=== PATIENT | male | born 1960 | race Caucasian/White ===

== ENCOUNTER → 2021-06-07 | Outpatient (CLI) | payer OTHER ==
[~2021-06-07] MED LIST: CEPH500 PO; HYDACE5325 PO
== END | disposition home or self-care (01) ==
LOC: LAB SHORT 13:44
DX: R07.9 Chest pain, unspecified (principal)
CPT/HCPCS: 84484

== ENCOUNTER 2021-07-11 08:34 | Emergency (ER) | payer OTHER ==
[~2021-07-11] VITALS: Ht 182.9 cm; Wt 102.1 kg
[~2021-07-11 08:34] MED LIST changes: +Simvastatin20 MG PO
[2021-07-11 09:18] LABS: BASOPHILS ABSOLUTE AUTO 0.02 K/mm3 (0.00-0.23); BASOPHILS PERCENT AUTO 0 % (0-2); EOSINOPHILS ABSOLUTE AUTO 0.08 K/mm3 (0.00-0.68); EOSINOPHILS PERCENT AUTO 1 % (0-6); Hematocrit 45.6 % (37.0-53.0); Hemoglobin 15.5 g/dL (13.5-17.5); IMMATURE GRAN ABSOLUTE AUTO 0.02 K/mm3 (0.00-0.10); IMMATURE GRAN PERCENT AUTO 0 % (0-1); LYMPHOCYTES ABSOLUTE AUTO 1.61 K/mm3 (0.84-5.20); LYMPHOCYTES PERCENT AUTO 28 % (21-46); MONOCYTES ABSOLUTE AUTO 0.37 K/mm3 (0.16-1.47); MONOCYTES PERCENT AUTO 7 % (4-13); Mean Corpuscular Volume 88 fL (80-100); Mean Platelet Volume 9.1 fL (9.1-12.4); NEUTROPHILS ABSOLUTE AUTO 3.58 K/mm3 (1.96-9.15); NEUTROPHILS PERCENT AUTO 63 % (41-73); Platelet Count 256 K/mm3 (150-400); RDW Coefficient Variation 11.9 % (11.7-14.2); RDW Standard Deviation 38.5 fL (35.1-46.3); Red Blood Cell Count 5.16 M/mm3 (4.30-5.90); White Blood Cell Count 5.68 K/mm3 (4.00-11.30)
[2021-07-11 09:36] LABS: Alanine Aminotransfer (ALT/SGP 79 U/L (12-78); Albumin, Blood 3.6 g/dL (3.4-5.0); Albumin/Globulin Ratio 0.9 (0.8-1.8); Alk Phos 72 U/L (50-136); Anion Gap 6 mmol/L (6-16); Aspartate Aminotrans (AST/SGOT 44 U/L (12-37); Bilirubin, Total 0.6 mg/dL (0.1-1.0); Blood Urea Nitrogen 14 mg/dL (8-24); Bun/Creatinine Ratio 15.5 (12.0-20.0); CO2, Blood 27 mmol/L (21-32); Calcium, Blood 8.8 mg/dL (8.5-10.1); Chloride, Blood 107 mmol/L (98-108); Globulin, Blood 3.9 g/dL (2.2-4.0); Glomerular Filtration Rate >60 (60-); Glucose, Blood 132 mg/dL (70-99); Potassium, Blood 4.1 mmol/L (3.5-5.5); Sodium, Blood 140 mmol/L (136-145); Total Protein, Blood 7.5 g/dL (6.4-8.2)
== END 2021-07-11 12:34 | disposition home or self-care (01) ==
LOC: ER 08:34
PROVIDERS: Emergency Medicine
DX: R07.9 Chest pain, unspecified (principal); Z88.0 Allergy status to penicillin
CPT/HCPCS: 36415; 71045; 80053; 83690; 84484; 85025; 93005; 93010; 99285-25

== ENCOUNTER 2022-03-02 08:41 | Day surgery (SDC) | payer OTHER ==
[~2022-03-02] VITALS: Ht 182.9 cm; Wt 103.0 kg
[~2022-03-02 08:41] MED LIST changes: +Aspir 8181 MG PO; +NITR.4SL SL; +OMEP20ER PO; +Prinivil10 MG PO
--- NOTE | 2022-03-02 12:54 | NUR ---
DISCHARGE REVIEWED WITH PT AND S.O., BOTH VERBALIZE UNDERSTANDING OF INSTRUCTIONS. TR BAND REMOVED AND AREA CLEANSED, CLOTH DOT PLACED. ARM BOARD PLACED TO R ARM. SALINE LOCK REMOVED WITH CATHETER INTACT. PT DISCHARGED WITH FAMILY.
== END 2022-03-02 12:55 | disposition home or self-care (01) ==
LOC: MHTC 08:41
DX: I25.10 Atherosclerotic heart disease of native coronary artery without angina pectoris (principal); E78.5 Hyperlipidemia, unspecified; I10 Essential (primary) hypertension; K21.9 Gastro-esophageal reflux disease without esophagitis; Z88.0 Allergy status to penicillin
CPT/HCPCS: 76937; 93454; 99152; 99153; C1769; C1887; C1894; J1644; J2250; J3010; J7030; J7040; Q9967

== ENCOUNTER → 2022-03-30 | Outpatient (CLI) | payer OTHER ==
[2022-03-30 18:14] LABS: Adenovirus F 40/41 Not Detected (NOT DETECT); Campylobacter Sp Not Detected (NOT DETECT); Cryptosporidium Not Detected (NOT DETECT); Cyclospora Cayetanensis Not Detected (NOT DETECT); E. Coli O157 Not Detected (NOT DETECT); Entamoeba Histolytica Not Detected (NOT DETECT); Enteroaggregative E. coli-EAEC Not Detected (NOT DETECT); Enteropathogenic E. coli-EPEC Not Detected (NOT DETECT); Enterotoxigenic E. coli-ETEC Not Detected (NOT DETECT); Giardia Lamblia Not Detected (NOT DETECT); Plesiomonas Shigelloides Not Detected (NOT DETECT); Salmonella Sp Not Detected (NOT DETECT); Shiga Toxin-prod E. coli-STEC Not Detected (NOT DETECT); Shigella/Enteroin E. coli-EIEC Not Detected (NOT DETECT); Vibrio Cholerae Not Detected (NOT DETECT); Vibrio Sp Not Detected (NOT DETECT); Yersinia Enterocolitica Not Detected (NOT DETECT)
[2022-03-30 18:15] LABS: Astrovirus Not Detected (NOT DETECT); Norovirus GI/GII Not Detected (NOT DETECT); Rotavirus A Not Detected (NOT DETECT); Sapovirus Not Detected (NOT DETECT)
== END | disposition home or self-care (01) ==
LOC: LAB 14:19 → LAB SHORT 14:19
PROVIDERS: Physician Assistant
DX: K92.1 Melena (principal); R19.4 Change in bowel habit
CPT/HCPCS: 87507

== ENCOUNTER 2022-08-06 10:28 | Day surgery (SDC) | payer OTHER | END 2022-08-06 23:12 | disposition home or self-care (01) | LOC: RAD 10:28 | DX: D70.1 Agranulocytosis secondary to cancer chemotherapy (principal); C20 Malignant neoplasm of rectum; T45.1X5A Adverse effect of antineoplastic and immunosuppressive drugs, initial encounter | CPT/HCPCS: 36598 ==

== ENCOUNTER 2024-05-13 13:36 | Emergency (ER) | payer OTHER ==
[~2024-05-13] VITALS: Ht 182.9 cm; Wt 97.5 kg
[2024-05-13 14:14] LABS: BASOPHILS ABSOLUTE AUTO 0.03 K/mm3 (0.00-0.23); BASOPHILS PERCENT AUTO 1 % (0-2); EOSINOPHILS ABSOLUTE AUTO 0.03 K/mm3 (0.00-0.68); EOSINOPHILS PERCENT AUTO 1 % (0-6); Hematocrit 43.3 % (37.0-53.0); Hemoglobin 14.6 g/dL (13.5-17.5); IMMATURE GRAN ABSOLUTE AUTO 0.01 K/mm3 (0.00-0.10); IMMATURE GRAN PERCENT AUTO 0 % (0-1); LYMPHOCYTES ABSOLUTE AUTO 1.05 K/mm3 (0.84-5.20); LYMPHOCYTES PERCENT AUTO 23 % (21-46); MONOCYTES ABSOLUTE AUTO 0.34 K/mm3 (0.16-1.47); MONOCYTES PERCENT AUTO 7 % (4-13); Mean Corpuscular HGB 29.8 pg (26.0-34.0); Mean Corpuscular HGB Conc 33.7 g/dL (31.5-36.5); Mean Corpuscular Volume 88 fL (80-100); Mean Platelet Volume 8.4 fL (9.1-12.4); NEUTROPHILS ABSOLUTE AUTO 3.21 K/mm3 (1.96-9.15); NEUTROPHILS PERCENT AUTO 69 % (41-73); Platelet Count 208 K/mm3 (150-400); RDW Coefficient Variation 12.7 % (11.7-14.2); RDW Standard Deviation 41.1 fL (35.1-46.3); White Blood Cell Count 4.67 K/mm3 (4.00-11.30)
[2024-05-13 14:33] LABS: Albumin, Blood 3.7 g/dL (3.4-5.0); Bilirubin, Total 0.5 mg/dL (0.1-1.0); Calcium, Blood 9.2 mg/dL (8.5-10.1); Globulin, Blood 3.6 g/dL (2.2-4.0); Potassium, Blood 4.1 mmol/L (3.5-5.5); Total Protein, Blood 7.3 g/dL (6.4-8.2)
[2024-05-13] MEDS ORDERED: Aspirin 81 MG Chew PO ONE (14:35)
[2024-05-13 17:00] VITALS: BP 140/98
[2024-05-13] MEDS ORDERED: ACET500 PO (17:03)
== END 2024-05-13 17:10 | disposition home or self-care (01) ==
LOC: ER 13:36
PROVIDERS: Physician Assistant
DX: R07.89 Other chest pain (principal); I10 Essential (primary) hypertension; Z88.0 Allergy status to penicillin; Z79.82 Long term (current) use of aspirin; Z79.899 Other long term (current) drug therapy
CPT/HCPCS: 71046; 80053; 84484; 85025; 93005; 93010; 99285-25; A9270